=== PATIENT | male | born 1940 | race Caucasian/White ===

== ENCOUNTER → 2017-09-15 10:50 | Outpatient (CLI) | payer OTHER, SELFPAY ==
--- NOTE | 2017-09-15 10:53 | DI.RAD.S_ITS ---
PROCEDURE: XR KNEE RT 3V INDICATIONS: PAIN TECHNIQUE: 3 views of the knee were acquired. COMPARISON: None. FINDINGS: Bones: No fractures or dislocations. No suspicious bony lesions. Mild medial patellofemoral compartment narrowing. Superior patellar spur is present. Soft tissues: Mild/moderate joint effusion. No suspicious soft tissue calcifications. IMPRESSION: Mild degenerative changes with mild to moderate effusion. No visualized acute fracture or dislocation. However, if clinical concern and/or pain persist, short interval imaging followup in 7-10 days is recommended, as occult injury cannot be definitively excluded. Dictated by: Liliya Ng M.D. on 09/15/2017 at 14:45 Approved by: Liliya Ng M.D. on 09/15/2017 at 14:46
== END ==
PROVIDERS: Family Provider Family Medicine; PCP Family Medicine; Visit Provider Family Medicine
DX: M25.561 Pain in right knee (principal)
CPT/HCPCS: 73562

== ENCOUNTER → 2018-02-13 08:10 | Outpatient (CLI) | payer OTHER, SELFPAY ==
[2018-02-13 09:28] LABS: Basophils Percent Auto 0.6 % (0-2); Eosinophils Percent Auto 3.9 % (2-4); Hematocrit 38.1 % (41-53); Hemoglobin 12.3 g/dL (13.5-17.5); Lymphocytes Percent Auto 24.2 % (25-40); Mean Corpuscular HGB Conc 32.3 % (30-36); Mean Corpuscular Hemoglobin 21.9 PG (26-34); Monocytes Percent Auto 6.3 % (3-14); Neutrophils Absolute Auto 3800 /uL (3000-5900); Platelet Count 226 X10^3/uL (150-400); Red Cell Distribution Width 15.8 % (11.6-14.8); White Blood Cell Count 5.9 X10^3/uL (4.5-11.0)
[2018-02-13 09:35] LABS: Add Manual Diff / Slide Review SLIDE REVIEW
[2018-02-13 10:07] LABS: Microcytosis 1+
[2018-02-13 10:08] LABS: Hypochromasia 1+
[2018-02-13 10:12] LABS: Alanine Aminotransferase 50 IU/L (21-72); Albumin 4.5 g/dL (3.5-5.0); Albumin Globulin Ratio 1.7 (1.0-2.8); Alkaline Phosphatase 37 U/L (38-126); Aspartate Aminotransferase 29 IU/L (17-59); BUN Creatinine Ratio 16.7 (6-22); Bilirubin Total 0.7 mg/dL (0.2-1.3); Blood Urea Nitrogen 20 mg/dL (9-20); Calcium 9.4 mg/dL (8.4-10.2); Carbon Dioxide 27 mmol/L (22-32); Chloride 103 mmol/L (98-107); Cholesterol 127 mg/dL (140-199); Globulin 2.6 g/dL (1.7-4.1); Glucose 153 mg/dL (80-110); HDL Cholesterol 32 mg/dL (40-60); HEMOLYSIS < 15 (0-50); LDL Cholesterol Calculated 50 mg/dL (<100); Potassium 4.3 mmol/L (3.4-5.1); Sodium 144 mmol/L (137-145); Total Protein 7.1 g/dL (6.3-8.2); Triglycerides 224 mg/dL (35-150)
[2018-02-13 10:39] LABS: Thyroid Stimulating Hormone 3.57 uIU/mL (0.47-4.68)
== END ==
PROVIDERS: PCP Family Medicine; Visit Provider Family Medicine
DX: D56.3 Thalassemia minor (principal); I25.10 Atherosclerotic heart disease of native coronary artery without angina pectoris; Z68.30 Body mass index [BMI] 30.0-30.9, adult
CPT/HCPCS: 36415; 80053; 80061; 83036; 84443; 85025

== ENCOUNTER 2018-03-17 09:38 | Day surgery (SDC) | payer OTHER, SELFPAY ==
[2018-03-17 10:10] VITALS: BP 157/76; PULSE 68; RESP 16; TEMP 36.4; O2SAT 95; BMI 30.2
--- NOTE | 2018-03-17 10:43 | PM.HP.1 ---
History of Present Illness Date Patient Seen: 03/17/18 Time Patient Seen: 10:37 Chief complaint: [id number] COLONOSCOPY Narrative: The patient is a gentleman here for screening colonoscopy. His last exam was at least 8 years ago. It was done because of concern with diverticulitis. He has never had a polyps that he is aware of. No family history of colon cancer. Patient History Medical History Coronary artery disease (Chronic) Surgical History History of appendectomy (Resolved) History of cholecystectomy (Resolved) S/P left rotator cuff repair (Resolved) Family & Social History Social History: household members spouse Tobacco & Substance use: Smoking Status smoked in his younger years Meds Home Medications Medication Instructions Recorded Confirmed Type aspirin 81 mg PO QDAY #0 12/15/12 02/18/18 History colchicine 0.6 mg PO QDAY #30 cap 01/17/16 02/18/18 Rx lovastatin 20 mg PO QDAY #90 tab 03/04/17 02/18/18 Rx vardenafil 10 mg tablet 10 mg PO ONCE #10 tab 10/28/17 02/18/18 Rx metformin 1,000 mg tablet 1,000 mg PO BIDCC #180 tab 12/22/17 02/18/18 Rx gabapentin 100 mg capsule 100 mg PO BEDTIME #90 cap 02/18/18 Rx sildenafil (antihypertensive) 20 20 mg PO ONCE #100 tab 02/18/18 Rx mg tablet Allergies Allergy/AdvReac Type Severity Reaction Status Date / Time Penicillins AdvReac Mild GI Verified 03/17/18 10:16 Review of Systems Review of Systems All systems reviewed & are unremarkable except as noted in HPI and below Exam Vital Signs (past 8 hours): - 03/17/18 10:10 Temperature 97.6 F Pulse Rate 68 Respiratory Rate 16 Blood Pressure 157/76 H Pulse Oximetry 95 Oxygen Delivery Method Room Air Narrative Exam Narrative: Alert and oriented. May Have some minor memory issues. Lungs are clear to auscultation. No rales or rhonchi. Heart regular rate and rhythm without murmur or gallop. Abdomen is protuberant soft nontender without mass. Alert oriented x3. Assessment & Plan Plan: Assessment/Plan Narrative: Procedure colonoscopy. I have discussed the procedure and the rationale with the patient including risks of bleeding, perforation which would necessitate a major operation, failure to find remove all lesions and the potential to tattoo. They appeared to understand and wished to proceed.
--- NOTE | 2018-03-17 10:47 | PM.PREOP ---
Pre-operative Note Interval Note Pre-op Check: Yes History & Physical exam performed today by Physician Changes: No ASA Class (for procedural sedation): III
[2018-03-17] MEDS: MIDAZOLAM 5 MG/5 ML VIAL IV (11:09)
[2018-03-17] MEDS: fentaNYL 250 MCG/5 ML INJ IV (11:10)
--- NOTE | 2018-03-17 11:18 | PM.OP.ENDO ---
Operative Date/Time/Diagnoses Date of procedure: 03/17/18 Time of procedure: 11:18 Pre-op diagnosis: Screening examination. Last exam 8 years ago. Post-op diagnosis: same (Sigmoid diverticulosis.) Procedure & Clinicians Study performed: Colonoscopy Same procedure as scheduled: Yes Indications: Screening Surgeon: Rashad Florence Procedure Notes SCOAP/Timeout: Performed Procedure in detail: The patient was placed in the left lateral decubitus position and underwent IV sedation directed by the surgeon consisting of fentanyl and Versed. Digital exam was unremarkable. I could only feel the distal portion of his prostate but it was palpably normal. The scope was inserted and advanced through the rectum into the sigmoid, descending, transverse, and ascending colon. A few diverticula were seen in the sigmoid colon. To reach the cecum pressure was applied and a stiffener inserted.. The cecum was reached identified by the ileocecal valve and the appendiceal opening. The ileocecal valve was briefly cannulated. The terminal ileum was normal in appearance. The scope was gradually brought out. No Polyps were found . The scope ultimately was retroflexed in the rectum. The appearance was remarkable for some minor internal hemorrhoids. There were no ulcerations.. The scope was removed and the patient tolerated the procedure well Scope withdrawal time: 8 3/4 minutes Sedation minutes: 29 Findings: diverticulosis (A few sigmoid diverticuli noted) Specimen(s): none sent Complications: none Recommendations: Other recommendation (Screening colonoscopies are not usually recommended after age 80. If you are healthy you can consider having 1 at 85) Follow up: as needed Disposition: PACU
[2018-03-17 11:29] VITALS: BP 129/78; PULSE 60; RESP 16; TEMP 37.2; O2SAT 97
[2018-03-17 11:32] VITALS: BP 135/75; PULSE 68; RESP 16; O2SAT 96
[2018-03-17 11:50] VITALS: BP 139/75; PULSE 54; RESP 16; TEMP 36.6; O2SAT 95
== END 2018-03-17 11:56 | disposition home or self-care (01) ==
PROVIDERS: Family Provider Family Medicine; PCP Family Medicine; Visit Provider Specialist
PROC: 0DJD8ZZ Inspection of Lower Intestinal Tract, Via Natural or Artificial Opening Endoscopic (ICD-10-PCS; CPT 45378; principal; 2018-03-17 10:45)
DX: Z12.11 Encounter for screening for malignant neoplasm of colon (principal); K57.30 Diverticulosis of large intestine without perforation or abscess without bleeding; I25.10 Atherosclerotic heart disease of native coronary artery without angina pectoris; Z87.891 Personal history of nicotine dependence
CPT/HCPCS: G0121; 99152; 99153; J2250; J3010

== ENCOUNTER → 2018-04-23 10:50 | Outpatient (CLI) | payer OTHER, SELFPAY | PROVIDERS: PCP Family Medicine; Visit Provider Family Medicine | DX: M79.672 Pain in left foot (principal) | CPT/HCPCS: 95885; 95886; 95911 ==

== ENCOUNTER → 2018-06-04 09:16 | Outpatient (CLI) | payer MEDICARE, SELFPAY ==
[2018-06-04 11:35] LABS: BUN Creatinine Ratio 16.7 (6-22); Blood Urea Nitrogen 20 mg/dL (9-20); Calcium 9.3 mg/dL (8.4-10.2); Carbon Dioxide 27 mmol/L (22-32); Chloride 99 mmol/L (98-107); Glucose 194 mg/dL (80-110); HEMOLYSIS 40 (0-50); Potassium 4.6 mmol/L (3.4-5.1); Sodium 140 mmol/L (137-145)
[2018-06-04 11:42] LABS: Hemoglobin A1C% w Est Avg Glu 7.6 % (4.0-6.0)
== END ==
PROVIDERS: PCP Family Medicine; Visit Provider Family Medicine
DX: E11.9 Type 2 diabetes mellitus without complications (principal)
CPT/HCPCS: 36415; 80048; 83036

== ENCOUNTER 2019-02-04 12:21 | Emergency (ER) | payer MEDICARE, OTHER, SELFPAY ==
[2019-02-04 12:30] VITALS: BP 147/84; PULSE 84; RESP 22; TEMP 36.7; O2SAT 94
--- NOTE | 2019-02-04 12:44 | DI.RAD.S_ITS ---
PROCEDURE: XR CHEST 2V INDICATIONS: chest pain TECHNIQUE: 2 views of the chest were acquired. COMPARISON: [facility], , CHEST 2 VIEW, 12/15/2006, 11:39. FINDINGS: Surgical changes and devices: None. Lungs and pleura: There appears to be an area of increased attenuation within the retrocardiac region on the lateral view, which is new since the previous study. A calcified granuloma within the right lung is unchanged. No large effusion or pneumothorax is evident. Mediastinum: Mediastinal contours are normal. Heart size is normal. There is aortic atherosclerosis. Bones and chest wall: No suspicious bony abnormalities. Soft tissues appear unremarkable. IMPRESSION: Mild retrocardiac consolidation is suspicious for pneumonia versus atelectasis. Dictated by: Jonathan Johnson M.D. on 02/04/2019 at 12:31 Approved by: Jonathan Johnson M.D. on 02/04/2019 at 12:32
[2019-02-04 13:10] LABS: Add Manual Diff / Slide Review NO; Basophils Absolute Auto 100 /uL (0-100); Basophils Percent Auto 0.9 % (0-2); Eosinophils Absolute Auto 300 /uL (0-450); Eosinophils Percent Auto 4.3 % (2-4); Hematocrit 40.8 % (41-53); Hemoglobin 13.1 g/dL (13.5-17.5); Lymphocytes Absolute Auto 1400 /uL (1100-4500); Lymphocytes Percent Auto 20.3 % (25-40); Mean Corpuscular HGB Conc 32.2 % (30-36); Mean Corpuscular Hemoglobin 21.5 PG (26-34); Mean Corpuscular Volume 66.9 fL (80-100); Monocytes Absolute Auto 500 /uL (0-900); Monocytes Percent Auto 7.7 % (3-14); Neutrophils Absolute Auto 4600 /uL (1500-7000); Neutrophils Percent Auto 66.8 % (50-75); Platelet Count 270 X10^3/uL (150-400); White Blood Cell Count 6.9 X10^3/uL (4.5-11.0)
[2019-02-04 13:14] LABS: Prothrombin Time 11.5 SECONDS (10.1-12.7)
[2019-02-04 13:17] LABS: PTT Partial Thromboplastin Tim 30 SECONDS (26.4-36.2)
[2019-02-04 13:22] LABS: Alanine Aminotransferase 45 IU/L (21-72); Albumin 4.7 g/dL (3.5-5.0); Albumin Globulin Ratio 1.6 (1.0-2.8); Alkaline Phosphatase 39 U/L (38-126); Aspartate Aminotransferase 32 IU/L (17-59); Bilirubin Total 0.7 mg/dL (0.2-1.3); Blood Urea Nitrogen 26 mg/dL (9-20); Calcium 9.7 mg/dL (8.4-10.2); Carbon Dioxide 24 mmol/L (22-32); Chloride 101 mmol/L (98-107); Creatine Kinase 38 U/L (55-170); Estimated Glomerular Filt Rate 53.7 mL/min (>60); Globulin 2.9 g/dL (1.7-4.1); Glucose 160 mg/dL (80-110); HEMOLYSIS < 15 (0-50); Lipase 94 U/L (23-300); Potassium 4.4 mmol/L (3.4-5.1); Sodium 139 mmol/L (137-145); Total Protein 7.6 g/dL (6.3-8.2)
[2019-02-04 13:34] LABS: Troponin I < 0.012 ng/mL (0.01-0.034)
[2019-02-04 13:51] LABS: Anisocytosis 1+; Dohle Bodies 1+; Microcytosis 1+; Poikilocytosis 2+
--- NOTE | 2019-02-04 14:23 | ED_ITS ---
HPI - Chest Pain General Chief Complaint: Chest Pain Stated Complaint: Chest Pain x 2 months/increased today Time Seen by Provider: 02/04/19 14:00 Source: patient Mode of arrival: Ambulatory History of Present Illness HPI narrative: Patient is a 78-year-old male with history of coronary artery disease who presents with chest chest pain off and on for about a month and a half this morning it started on the left side of his chest pain point lasted for about 5 minutes lasted while he was walking. It went away on its own nonradiating he denies any shortness of breath no nausea no diaphoresis. This morning he says it was significantly worse. MD complaint: chest pain Onset (ago): month(s) Duration: improved Onset: during rest and during exertion Pain location: left chest Relieving factors: nothing Exacerbating factors: nothing Related Data Home Medications Medication Instructions Recorded Confirmed aspirin 81 mg PO DAILY #0 12/15/12 02/04/19 ResMed AirCurve 10 BIPAP #1 ea 07/27/18 02/04/19 colchicine 0.6 mg PO DAILY 02/04/19 latanoprost 1 drp OPHTHALMIC (EYE) DIRECTED 02/04/19 02/04/19 lovastatin 20 mg PO DAILY 02/04/19 02/04/19 Previous Rx's Medication Instructions Recorded sildenafil (antihypertensive) 20 20 mg PO ONCE #100 tab 02/18/18 mg tablet empagliflozin 25 mg tablet 25 mg PO QAM #90 tab 05/25/18 gabapentin 100 mg capsule 400 mg PO BEDTIME #360 cap 05/25/18 metformin 1,000 mg tablet 1,000 mg PO BIDCC #180 tab 05/25/18 Allergies Allergy/AdvReac Type Severity Reaction Status Date / Time Penicillins AdvReac Mild GI Verified 02/01/19 09:32 Review of Systems Review of Systems Narrative: GENERAL: Denies chills, fatigue, malaise, fever, sweats, travel HEENT: Denies sinus pain, ear pain, sore throat, difficulty swallowing, neck pain RESPIRATORY: Denies dyspnea, cough, wheezing, hemoptysis, sputum. CARDIOVASCULAR: See HPI GASTROINTESTINAL: Denies nausea, vomiting, abdominal pain, diarrhea, c onstipation, melena. : Denies dysuria, frequency, incontinence, hematuria, urinary retention, flank pain. MUSCULOSKELETAL: Denies weakness, joint pain, or bony pain SKIN: No rash, no erythema, no pruritus NEUROLOGIC: Denies weakness, dizziness, headache, numbness, change in speech, confusion PSYCHIATRIC: No concerning psychosocial issues. 12 point review of systems is negative except for those stated above and HPI [facility] Social History household members: spouse Smoking Status: Never smoker Exam Initial Vital Signs Initial Vital Signs: Vital Signs Temperature 98.0 F 02/04/19 12:30 Pulse Rate 84 02/04/19 12:30 Respiratory Rate 22 02/04/19 12:30 Blood Pressure 147/84 H 02/04/19 12:30 Pulse Oximetry 94 02/04/19 12:30 GENERAL: Well-appearing, well-nourished and in no acute distress. HEENT: Head atraumatic,EOMI, pupils reactive, face symmetric, moist mucous membrane CARDIOVASCULAR: Regular rate and rhythm without murmurs, rubs or gallops. RESPIRATORY: Breath sounds equal bilaterally, no wheezes rales or rhonchi. ABDOMEN: Soft, nontender. Normoactive bowel sounds all 4 quadrants. No guarding or rebound. : No CVA tenderness EXTREMITIES: Normal range of motion, no clubbing or edema. Neurovascularly intact NEUROLOGICAL: Alert and oriented x4.Normal gait and speech. SKIN: Warm, dry, no laceration, no petechiae, no rashes or lesions. Course Orders Ordered: Discontinued Medications Aspirin (Aspirin Chew) 324 mg PO NOW ONE Stop: 02/04/19 14:38 Last Admin: 02/04/19 15:23 Dose: 324 mg Documented by: STEPHENIE Consultations Consultation #1: Discussed case with PCP Dr. Dorado. Outpatient treadmill test has been scheduled for tomorrow. Time: 15:48 Vital Signs Vital signs: Vital Signs - 8 hr 02/04/19 12:30 02/04/19 15:00 02/04/19 16:00 Temperature 98.0 F Pulse Rate 84 63 63 Respiratory Rate 22 18 18 Blood Pressure 147/84 H Blood Pressure [Right Arm] 136/67 101/79 Pulse Oximetry 94 96 96 MDM - Chest Pain Lab Data Attestation: I reviewed the patient's lab results. Result diagrams: 02/04/19 12:55 02/04/19 12:55 Labs: Lab Results 10/07/2102/04/19 02/04/19 Range/Units 12:55 12:55 12:55 WBC 6.9 (4.5-11.0) X10^3/uL RBC 6.10 H (4.5-5.9) X10^6/uL Hgb 13.1 L (13.5-17.5) g/dL Hct 40.8 L (41-53) % MCV 66.9 L (80-100) fL MCH 21.5 L (26-34) PG MCHC 32.2 (30-36) % RDW 16.0 H (11.6-14.8) % Plt Count 270 (150-400) X10^3/uL Neut % (Auto) 66.8 (50-75) % Lymph % (Auto) 20.3 L (25-40) % Starke % (Auto) 7.7 (3-14) % Eos % (Auto) 4.3 H (2-4) % Baso % (Auto) 0.9 (0-2) % Neut # (Auto) 4600 (1232-5606) /uL Lymph # (Auto) 1400 (4482-7450) /uL Starke # (Auto) 500 (0-900) /uL Eos # (Auto) 300 (0-450) /uL Baso # (Auto) 100 (0-100) /uL Dohle Bodies 1+ H RBC Morphology See below Poikilocytosis 2+ H Anisocytosis 1+ H Microcytosis 1+ H PT 11.5 (10.1-12.7) SECONDS INR 1.0 (0.9-1.3) APTT 30 (26.4-36.2) SECONDS Sodium 139 (137-145) mmol/L Potassium 4.4 (3.4-5.1) mmol/L Chloride 101 (98-107) mmol/L Carbon Dioxide 24 (22-32) mmol/L BUN 26 H (9-20) mg/dL Creatinine 1.30 H (0.66-1.25) mg/dL Estimated GFR 53.7 L (>60) mL/min BUN/Creatinine Ratio 20.0 (6-22) Glucose 160 H (80-110) mg/dL Calcium 9.7 (8.4-10.2) mg/dL Total Bilirubin 0.7 (0.2-1.3) mg/dL AST 32 (17-59) IU/L ALT 45 (21-72) IU/L Alkaline Phosphatase 39 (38-126) U/L Total Creatine Kinase 38 L (55-170) U/L CK-MB (CK-2) TNP CK-MB (CK-2) Rel Index TNP Troponin I < 0.012 (0.01-0.034) ng/mL Total Protein 7.6 (6.3-8.2) g/dL Albumin 4.7 (3.5-5.0) g/dL Globulin 2.9 (1.7-4.1) g/dL Albumin/Globulin Ratio 1.6 (1.0-2.8) Lipase 94 (23-300) U/L 02/04/19 Range/Units 14:55 WBC (4.5-11.0) X10^3/uL RBC (4.5-5.9) X10^6/uL Hgb (13.5-17.5) g/dL Hct (41-53) % MCV (80-100) fL MCH (26-34) PG MCHC (30-36) % RDW (11.6-14.8) % Plt Count (150-400) X10^3/uL Neut % (Auto) (50-75) % Lymph % (Auto) (25-40) % Starke % (Auto) (3-14) % Eos % (Auto) (2-4) % Baso % (Auto) (0-2) % Neut # (Auto) (3194-2146) /uL Lymph # (Auto) (1995-7634) /uL Starke # (Auto) (0-900) /uL Eos # (Auto) (0-450) /uL Baso # (Auto) (0-100) /uL Dohle Bodies RBC Morphology Poikilocytosis Anisocytosis Microcytosis PT (10.1-12.7) SECONDS INR (0.9-1.3) APTT (26.4-36.2) SECONDS Sodium (137-145) mmol/L Potassium (3.4-5.1) mmol/L Chloride (98-107) mmol/L Carbon Dioxide (22-32) mmol/L BUN (9-20) mg/dL Creatinine (0.66-1.25) mg/dL Estimated GFR (>60) mL/min BUN/Creatinine Ratio (6-22) Glucose (80-110) mg/dL Calcium (8.4-10.2) mg/dL Total Bilirubin (0.2-1.3) mg/dL AST (17-59) IU/L ALT (21-72) IU/L Alkaline Phosphatase (38-126) U/L Total Creatine Kinase (55-170) U/L CK-MB (CK-2) CK-MB (CK-2) Rel Index Troponin I < 0.012 (0.01-0.034) ng/mL Total Protein (6.3-8.2) g/dL Albumin (3.5-5.0) g/dL Globulin (1.7-4.1) g/dL Albumin/Globulin Ratio (1.0-2.8) Lipase (23-300) U/L Imaging Data Chest x-ray: Radiologist's impression: PROCEDURE: XR CHEST 2V INDICATIONS: chest pain TECHNIQUE: 2 views of the chest were acquired. COMPARISON: [facility], , CHEST 2 VIEW, 12/15/2006, 11:39. FINDINGS: Surgical changes and devices: None. Lungs and pleura: There appears to be an area of increased attenuation within the retrocardiac region on the lateral view, which is new since the previous study. A calcified granuloma within the right lung is unchanged. No large effusion or pneumothorax is evident. Mediastinum: Mediastinal contours are normal. Heart size is normal. There is aortic atherosclerosis. Bones and chest wall: No suspicious bony abnormalities. Soft tissues appear unremarkable. IMPRESSION: Mild retrocardiac consolidation is suspicious for pneumonia versus atelectasis. Dictated by: Jonathan Johnson M.D. on 02/04/2019 at 12:31 Approved by: Jonathan Johnson M.D. on 02/04/2019 at 12:32 ECG Data Attestation: I personally reviewed and interpreted this ECG as follows: Prior ECG tracings: not available for review Interpretation: Normal sinus rhythm at 78, no ST elevations no T-wave inversions no priors to compare MDM Narrative Medical decision making narrative: Patient is chest pain-free. He has 2- troponins. He has an outpatient stress test scheduled for tomorrow. Instructed to return to the ED if his chest pain should worsen overnight. Discharge Plan Departure Patient Disposition: Home Clinical Impression: Chest pain Qualifiers: Chest pain type: unspecified Qualified Code(s): R07.9 - Chest pain, unspecified Discharge Date/Time: 02/04/19 16:47 Instructions: DI for Chest Pain Activity Restrictions/Additional Instructions: *You have been diagnosed with chest pain *What to do: A stress test has been scheduled for you for tomorrow. *Continue to take medications as directed *Follow up with your primary care provider in 2-3 days *Return to ER if you should have increasing chest pain shortness or any new, worsening or concerning symptoms Prescriptions: No Action aspirin 81 MG tablet,delayed release (DR/EC) 81 mg PO DAILY Qty: 0 RF: 0 sildenafil (antihypertensive) 20 mg tablet 20 mg PO ONCE Qty: 100 RF: 5 gabapentin 100 mg capsule 400 mg PO BEDTIME Qty: 360 RF: 3 metformin [Glucophage] 1,000 mg tablet 1,000 mg PO BIDCC Qty: 180 RF: 3 empagliflozin [Jardiance] 25 mg tablet 25 mg PO QAM Qty: 90 RF: 3 latanoprost 0.005 % drops 1 drp ophthalmic (eye) DIRECTED RF: 0 lovastatin 20 mg tablet 20 mg PO DAILY RF: 0 colchicine 0.6 mg capsule 0.6 mg PO DAILY RF: 0 (DME) ResMed AirCurve 10 BIPAP Qty: 1 RF: 0 Referrals: Speedy Dorado MD [Primary Care Provider] -
[2019-02-04 15:00] VITALS: BP 136/67; PULSE 63; RESP 18; O2SAT 96
[2019-02-04 15:22] LABS: Troponin I < 0.012 ng/mL (0.01-0.034)
[2019-02-04] MEDS: ASPIRIN 81 MG CHEW TAB 324 MG PO (15:23)
[2019-02-04 16:00] VITALS: BP 101/79; PULSE 63; RESP 18; O2SAT 96
[2019-02-04 16:30] VITALS: BP 134/64; PULSE 66; RESP 12; O2SAT 95
== END 2019-02-04 16:47 | disposition home or self-care (01) ==
PROVIDERS: Emergency Provider Emergency Medicine; PCP Family Medicine
DX: R07.9 Chest pain, unspecified (principal); Z79.82 Long term (current) use of aspirin
CPT/HCPCS: 36415; 71046; 80053; 82550; 83690; 84484; 85025; 85610; 85730; 93005; 93016; 93017; 93018; 99283; 99285

== ENCOUNTER → 2019-02-05 11:16 | Outpatient (CLI) | payer MEDICARE, OTHER, SELFPAY ==
--- NOTE | 2019-02-05 11:51 | PM.TREADMILL ---
Cardiac Stress Test Report Referral & Results Date Patient Seen: 02/05/19 Requesting provider: Speedy Dorado Indication: Chest pain, ER visit yesterday Rest ECG: Unremarkable Procedure Note: Today following both written and verbal informed consent, the patient was exercised according to a standard Shahram protocol. The patient exercised for a total of 6 minutes 36 seconds achieving a maximum heart rate of 140. Patient's maximum systolic blood pressure was 212. This was an estimated 7.0 MET's. There are no ST-T segment changes Normal heart rate and blood pressure response to exercise although perhaps a bit hypertensive Functional aerobic impairment rates-10% on the active scale or 10% better than average Impression: No ECG evidence of ischemia Better than average exercise capacity Clinical correlation suggested Please note: Actual ECG tracings can be found in the PACS system.
== END ==
PROVIDERS: PCP Family Medicine; Visit Provider Family Medicine
DX: R07.9 Chest pain, unspecified (principal)
CPT/HCPCS: 93016; 93017; 93018

== ENCOUNTER → 2019-03-12 10:49 | Outpatient (CLI) | payer MEDICARE, OTHER, SELFPAY ==
[2019-03-12 12:46] LABS: Add Manual Diff / Slide Review NO; Basophils Absolute Auto 0 /uL (0-100); Basophils Percent Auto 0.7 % (0-2); Eosinophils Absolute Auto 200 /uL (0-450); Eosinophils Percent Auto 2.6 % (2-4); Hematocrit 42.5 % (41-53); Hemoglobin 13.6 g/dL (13.5-17.5); Lymphocytes Absolute Auto 1700 /uL (1100-4500); Lymphocytes Percent Auto 24.4 % (25-40); Mean Corpuscular Hemoglobin 21.9 PG (26-34); Mean Corpuscular Volume 68.4 fL (80-100); Monocytes Absolute Auto 400 /uL (0-900); Monocytes Percent Auto 6.4 % (3-14); Neutrophils Absolute Auto 4600 /uL (1500-7000); Neutrophils Percent Auto 65.9 % (50-75); Platelet Count 253 X10^3/uL (150-400); Red Blood Cell Count 6.21 X10^6/uL (4.5-5.9); Red Cell Distribution Width 16.5 % (11.6-14.8); White Blood Cell Count 6.9 X10^3/uL (4.5-11.0)
[2019-03-12 13:32] LABS: Anisocytosis 1+; Microcytosis 1+; Ovalocytes 1+; Poikilocytosis 1+
[2019-03-12 14:03] LABS: Blood Urea Nitrogen 24 mg/dL (9-20); Calcium 9.4 mg/dL (8.4-10.2); Carbon Dioxide 23 mmol/L (22-32); Chloride 104 mmol/L (98-107); Cholesterol 136 mg/dL (140-199); Estimated Glomerular Filt Rate 58.9 mL/min (>60); Glucose 127 mg/dL (80-110); HDL Cholesterol 30 mg/dL (40-60); HEMOLYSIS < 15 (0-50); LDL Cholesterol Calculated 48 mg/dL (<100); Sodium 141 mmol/L (137-145); Triglycerides 290 mg/dL (35-150)
[2019-03-12 14:33] LABS: Thyroid Stimulating Hormone 3.55 uIU/mL (0.47-4.68)
== END ==
PROVIDERS: PCP Family Medicine; Visit Provider Family Medicine
DX: E11.9 Type 2 diabetes mellitus without complications (principal); I25.10 Atherosclerotic heart disease of native coronary artery without angina pectoris
CPT/HCPCS: 36415; 80048; 80061; 83036; 84443; 85025

== ENCOUNTER → 2019-07-12 11:17 | Outpatient (CLI) | payer MEDICARE, OTHER, SELFPAY ==
[2019-07-12 12:01] LABS: Hemoglobin A1C% w Est Avg Glu 8.2 % (4.0-6.0)
[2019-07-12 12:44] LABS: BUN Creatinine Ratio 16.2 (6-22); Blood Urea Nitrogen 21 mg/dL (9-20); Calcium 9.7 mg/dL (8.4-10.2); Carbon Dioxide 23 mmol/L (22-32); Chloride 104 mmol/L (98-107); Estimated Glomerular Filt Rate 53.7 mL/min (>60); Glucose 212 mg/dL (80-110); HEMOLYSIS < 15 (0-50); Potassium 4.7 mmol/L (3.4-5.1); Sodium 140 mmol/L (137-145)
== END ==
PROVIDERS: PCP Family Medicine; Referring Provider Family Medicine; Visit Provider Family Medicine
DX: E11.9 Type 2 diabetes mellitus without complications (principal)
CPT/HCPCS: 36415; 80048; 83036

== ENCOUNTER → 2019-08-30 07:27 | Outpatient (CLI) | payer MEDICARE, OTHER, SELFPAY ==
[2019-08-30 07:56] LABS: Hemoglobin A1C% w Est Avg Glu 8.3 % (4.0-6.0)
== END ==
PROVIDERS: PCP Family Medicine; Referring Provider Family Medicine; Visit Provider Family Medicine
DX: Z51.89 Encounter for other specified aftercare (principal); E11.9 Type 2 diabetes mellitus without complications
CPT/HCPCS: 36415; 83036

== ENCOUNTER → 2020-03-20 06:56 | Outpatient (CLI) | payer MEDICARE, OTHER, SELFPAY ==
[2020-03-20 08:54] LABS: Add Manual Diff / Slide Review NO; Basophils Absolute Auto 0 /uL (0-100); Basophils Percent Auto 0.6 % (0-2); Eosinophils Absolute Auto 200 /uL (0-450); Eosinophils Percent Auto 3.4 % (2-4); Hematocrit 41.9 % (41-53); Hemoglobin 13.6 g/dL (13.5-17.5); Lymphocytes Absolute Auto 1500 /uL (1100-4500); Mean Corpuscular HGB Conc 32.4 % (30-36); Mean Corpuscular Hemoglobin 22.4 PG (26-34); Mean Corpuscular Volume 69.2 fL (80-100); Monocytes Absolute Auto 400 /uL (0-900); Monocytes Percent Auto 7.3 % (3-14); Neutrophils Absolute Auto 3500 /uL (1500-7000); Neutrophils Percent Auto 61.7 % (50-75); Platelet Count 249 X10^3/uL (150-400); Red Blood Cell Count 6.05 X10^6/uL (4.5-5.9); White Blood Cell Count 5.7 X10^3/uL (4.5-11.0)
[2020-03-20 08:57] LABS: Hemoglobin A1C% w Est Avg Glu 7.4 % (4.0-6.0)
[2020-03-20 09:11] LABS: Anisocytosis 1+; Poikilocytosis 1+
[2020-03-20 09:15] LABS: Alanine Aminotransferase 47 IU/L (<50); Albumin 4.5 g/dL (3.5-5.0); Albumin Globulin Ratio 1.6 (1.0-2.8); Alkaline Phosphatase 42 U/L (38-126); Aspartate Aminotransferase 32 IU/L (17-59); Bilirubin Total 0.7 mg/dL (0.2-1.3); Blood Urea Nitrogen 21 mg/dL (9-20); Calcium 9.7 mg/dL (8.4-10.2); Carbon Dioxide 28 mmol/L (22-32); Chloride 105 mmol/L (98-107); Cholesterol 121 mg/dL (140-199); Estimated Glomerular Filt Rate 53.1 mL/min (>60); Globulin 2.8 g/dL (1.7-4.1); Glucose 152 mg/dL (80-110); HDL Cholesterol 27 mg/dL (40-60); HEMOLYSIS < 15 (0-50); LDL Cholesterol Calculated 38 mg/dL (<100); Sodium 140 mmol/L (137-145); Total Protein 7.3 g/dL (6.3-8.2); Triglycerides 279 mg/dL (35-150)
[2020-03-20 09:43] LABS: Prostate Specific Antigen Scrn 1.88 ng/mL (0.1-4.0)
== END ==
PROVIDERS: PCP Family Medicine; Referring Provider Family Medicine; Visit Provider Family Medicine
DX: E11.9 Type 2 diabetes mellitus without complications (principal); Z12.5 Encounter for screening for malignant neoplasm of prostate
CPT/HCPCS: 36415; 80053; 80061; 83036; 85025; G0103

== ENCOUNTER → 2020-06-28 08:43 | Outpatient (CLI) | payer MEDICARE, OTHER, SELFPAY ==
[2020-06-28 09:53] LABS: Hemoglobin A1C% w Est Avg Glu 7.1 % (4.0-6.0)
== END ==
PROVIDERS: PCP Family Medicine; Referring Provider Family Medicine; Visit Provider Family Medicine
DX: E11.9 Type 2 diabetes mellitus without complications (principal)
CPT/HCPCS: 36415; 83036

== ENCOUNTER → 2020-08-02 09:42 | Outpatient (CLI) | payer MEDICARE, OTHER, SELFPAY | PROVIDERS: PCP Family Medicine; Referring Provider Family Medicine; Visit Provider Family Medicine | DX: K52.9 Noninfective gastroenteritis and colitis, unspecified (principal) | CPT/HCPCS: 87045; 87046; 87177; 87899 ==

== ENCOUNTER → 2020-09-06 07:14 | Outpatient (CLI) | payer MEDICARE, OTHER, SELFPAY ==
[2020-09-06 08:38] LABS: Hemoglobin A1C% w Est Avg Glu 5.8 % (4.0-6.0)
== END ==
PROVIDERS: PCP Family Medicine; Referring Provider Family Medicine; Visit Provider Family Medicine
DX: E11.42 Type 2 diabetes mellitus with diabetic polyneuropathy (principal)
CPT/HCPCS: 36415; 83036

== ENCOUNTER → 2020-12-22 07:39 | Outpatient (CLI) | payer MEDICARE, OTHER, SELFPAY ==
[2020-12-22 08:57] LABS: Hemoglobin A1C% w Est Avg Glu 6.3 % (4.0-6.0)
== END ==
PROVIDERS: PCP Family Medicine; Referring Provider Family Medicine; Visit Provider Family Medicine
DX: E11.42 Type 2 diabetes mellitus with diabetic polyneuropathy (principal); K52.9 Noninfective gastroenteritis and colitis, unspecified
CPT/HCPCS: 36415; 83036

== ENCOUNTER → 2021-03-07 08:01 | Outpatient (CLI) | payer MEDICARE, OTHER, SELFPAY ==
[2021-03-07 08:27] LABS: Add Manual Diff / Slide Review NO; Basophils Absolute Auto 0 /uL (0-100); Basophils Percent Auto 0.5 % (0-2); Eosinophils Absolute Auto 200 /uL (0-450); Hematocrit 42.9 % (41-53); Hemoglobin 13.9 g/dL (13.5-17.5); Lymphocytes Absolute Auto 1800 /uL (1100-4500); Lymphocytes Percent Auto 29.9 % (25-40); Mean Corpuscular HGB Conc 32.4 % (30-36); Mean Corpuscular Hemoglobin 22.2 PG (26-34); Mean Corpuscular Volume 68.6 fL (80-100); Monocytes Absolute Auto 400 /uL (0-900); Monocytes Percent Auto 6.4 % (3-14); Neutrophils Absolute Auto 3600 /uL (1500-7000); Neutrophils Percent Auto 59.2 % (50-75); Platelet Count 208 X10^3/uL (150-400); Red Blood Cell Count 6.24 X10^6/uL (4.5-5.9); Red Cell Distribution Width 16.1 % (11.6-14.8)
[2021-03-07 08:46] LABS: Alanine Aminotransferase 32 IU/L (<50); Albumin 4.6 g/dL (3.5-5.0); Albumin Globulin Ratio 1.8 (1.0-2.8); Alkaline Phosphatase 38 U/L (38-126); Aspartate Aminotransferase 27 IU/L (17-59); BUN Creatinine Ratio 15.8 (6-22); Bilirubin Total 0.5 mg/dL (0.2-1.3); Blood Urea Nitrogen 21 mg/dL (9-20); Calcium 9.6 mg/dL (8.4-10.2); Carbon Dioxide 26 mmol/L (22-32); Chloride 105 mmol/L (98-107); Cholesterol 105 mg/dL (140-199); Globulin 2.6 g/dL (1.7-4.1); Glucose 141 mg/dL (80-110); HDL Cholesterol 30 mg/dL (40-60); HEMOLYSIS < 15 (0-50); LDL Cholesterol Calculated 36 mg/dL (<100); Potassium 4.2 mmol/L (3.4-5.1); Sodium 141 mmol/L (137-145); Total Protein 7.2 g/dL (6.3-8.2); Triglycerides 196 mg/dL (35-150)
[2021-03-07 09:01] LABS: Microcytosis 2+
[2021-03-07 09:07] LABS: Vitamin D 25 Hydroxy (D3) 84.4 ng/mL (30.0-100.0)
== END ==
PROVIDERS: PCP Family Medicine; Referring Provider Family Medicine; Visit Provider Family Medicine
DX: E11.42 Type 2 diabetes mellitus with diabetic polyneuropathy (principal); I25.10 Atherosclerotic heart disease of native coronary artery without angina pectoris; E55.9 Vitamin D deficiency, unspecified
CPT/HCPCS: 36415; 80053; 80061; 82306; 85025

== ENCOUNTER → 2021-07-04 08:06 | Outpatient (CLI) | payer MEDICARE, OTHER, SELFPAY ==
[2021-07-04 09:12] LABS: Hemoglobin A1C% w Est Avg Glu 6.5 % (4.0-6.0)
[2021-07-04 09:30] LABS: Alanine Aminotransferase 34 IU/L (<50); Albumin 4.6 g/dL (3.5-5.0); Albumin Globulin Ratio 1.6 (1.0-2.8); Alkaline Phosphatase 39 U/L (38-126); Aspartate Aminotransferase 32 IU/L (17-59); BUN Creatinine Ratio 21.2 (6-22); Bilirubin Total 0.5 mg/dL (0.2-1.3); Blood Urea Nitrogen 29 mg/dL (9-20); Calcium 9.4 mg/dL (8.4-10.2); Carbon Dioxide 28 mmol/L (22-32); Chloride 103 mmol/L (98-107); Cholesterol 132 mg/dL (140-199); Estimated Glomerular Filt Rate 50.3 mL/min (>60); Globulin 2.8 g/dL (1.7-4.1); Glucose 139 mg/dL (80-110); HDL Cholesterol 28 mg/dL (40-60); HEMOLYSIS 31 (0-50); LDL Cholesterol Calculated 45 mg/dL (<100); Sodium 140 mmol/L (137-145); Total Protein 7.4 g/dL (6.3-8.2); Triglycerides 295 mg/dL (35-150)
== END ==
PROVIDERS: PCP Family Medicine; Referring Provider Family Medicine; Visit Provider Family Medicine
DX: E11.42 Type 2 diabetes mellitus with diabetic polyneuropathy (principal)
CPT/HCPCS: 36415; 80053; 80061; 83036

== ENCOUNTER → 2021-09-28 12:58 | Outpatient (CLI) | payer MEDICARE, OTHER, SELFPAY ==
[2021-09-28 14:17] LABS: Add Manual Diff / Slide Review NO; Basophils Absolute Auto 100 /uL (0-100); Basophils Percent Auto 0.9 % (0-2); Eosinophils Absolute Auto 200 /uL (0-450); Eosinophils Percent Auto 3.1 % (2-4); Hematocrit 41.7 % (41-53); Hemoglobin 13.4 g/dL (13.5-17.5); Lymphocytes Absolute Auto 1900 /uL (1100-4500); Mean Corpuscular HGB Conc 32.2 % (30-36); Mean Corpuscular Hemoglobin 22.1 PG (26-34); Mean Corpuscular Volume 68.5 fL (80-100); Monocytes Absolute Auto 400 /uL (0-900); Monocytes Percent Auto 7.2 % (3-14); Neutrophils Absolute Auto 3400 /uL (1500-7000); Neutrophils Percent Auto 56.8 % (50-75); Platelet Count 223 X10^3/uL (150-400); Red Blood Cell Count 6.08 X10^6/uL (4.5-5.9); Red Cell Distribution Width 16.8 % (11.6-14.8)
[2021-09-28 14:31] LABS: Alanine Aminotransferase 32 IU/L (<50); Albumin 4.6 g/dL (3.5-5.0); Albumin Globulin Ratio 1.8 (1.0-2.8); Alkaline Phosphatase 33 U/L (38-126); Aspartate Aminotransferase 28 IU/L (17-59); BUN Creatinine Ratio 19.5 (6-22); Bilirubin Total 0.7 mg/dL (0.2-1.3); Blood Urea Nitrogen 25 mg/dL (9-20); Calcium 9.3 mg/dL (8.4-10.2); Carbon Dioxide 22 mmol/L (22-32); Chloride 105 mmol/L (98-107); Estimated Glomerular Filt Rate 57 mL/min (>60); Globulin 2.6 g/dL (1.7-4.1); Glucose 100 mg/dL (80-110); HEMOLYSIS < 15 (0-50); Potassium 4.6 mmol/L (3.4-5.1); Sodium 142 mmol/L (137-145); Total Protein 7.2 g/dL (6.3-8.2)
[2021-09-28 14:59] LABS: Microcytosis 2+
[2021-09-28 15:02] LABS: Appearance Urine UA CLEAR; Bilirubin Urine UA NEGATIVE (NEGATIVE); Color Urine UA YELLOW; Glucose Urine UA 2+ g/dL (Negative); Ketones Urine UA NEGATIVE (NEGATIVE); Leukocyte Esterase Urine UA NEGATIVE (NEGATIVE); Nitrite Urine UA NEGATIVE (Negative); Occult Blood Urine UA NEGATIVE (Negative); Protein Urine UA NEGATIVE (Negative); Urobilinogen Urine UA 0.2 E.U./dL (0.2)
[2021-09-28 15:27] LABS: Bacteria Urine None Seen; Culture Indicated Urine Cult Not Indicated; RBC Urine None Seen (0-5/HPF); Squamous Epithelial Cell Urine 0-1 /HPF (0-5/HPF); WBC Urine 0-1/HPF (0-5/HPF)
[2021-09-28 18:39] LABS: Microalbumin Urine Random 1.4 mg/dL (0-1.6)
[2021-09-28 18:42] LABS: Microalbumi Creatinin Ratio Ur 17.5 ug/mg CR (<30)
[2021-09-28 18:47] LABS: Protein (Total) Urine Random < 5 mg/dL (0-12); Protein Creatinine Ratio Urine 0.06 GRAM/24H
== END ==
PROVIDERS: PCP Family Medicine; Referring Provider Internal Medicine Nephrology; Visit Provider Internal Medicine Nephrology
DX: N18.30 Chronic kidney disease, stage 3 unspecified (principal)
CPT/HCPCS: 36415; 80053; 81001; 82043; 82570; 84156; 85025

== ENCOUNTER → 2022-04-08 15:31 | Outpatient (CLI) | payer MEDICARE, OTHER, SELFPAY ==
[2022-04-08 18:53] LABS: Creatinine Urine Random 56.6 mg/dL
[2022-04-08 18:54] LABS: BUN Creatinine Ratio 22.8 (6-22); Blood Urea Nitrogen 29 mg/dL (9-20); Calcium 9.1 mg/dL (8.4-10.2); Carbon Dioxide 27 mmol/L (22-32); Chloride 99 mmol/L (98-107); Estimated Glomerular Filt Rate 57 mL/min (>60); Glucose 184 mg/dL (80-110); HEMOLYSIS 27 (0-50); Potassium 4.5 mmol/L (3.4-5.1); Sodium 138 mmol/L (137-145)
[2022-04-08 19:00] LABS: Microalbumi Creatinin Ratio Ur 28.2 ug/mg CR (<30); Microalbumin Urine Random 1.6 mg/dL (0-1.6)
== END ==
PROVIDERS: PCP Family Medicine; Referring Provider Internal Medicine Nephrology; Visit Provider Internal Medicine Nephrology
DX: E11.22 Type 2 diabetes mellitus with diabetic chronic kidney disease (principal); N18.31 Chronic kidney disease, stage 3a; I10 Essential (primary) hypertension
CPT/HCPCS: 36415; 80048; 82043; 82570; 85014; 85018

== ENCOUNTER → 2022-06-25 06:54 | Outpatient (CLI) | payer MEDICARE, OTHER, SELFPAY ==
[2022-06-25 07:30] LABS: Add Manual Diff / Slide Review NO; Basophils Absolute Auto 0 /uL (0-100); Basophils Percent Auto 0.8 % (0-2); Eosinophils Absolute Auto 200 /uL (0-450); Eosinophils Percent Auto 4.3 % (2-4); Hematocrit 43.2 % (41-53); Hemoglobin 13.9 g/dL (13.5-17.5); Lymphocytes Absolute Auto 1700 /uL (1100-4500); Lymphocytes Percent Auto 30.8 % (25-40); Mean Corpuscular HGB Conc 32.1 % (30-36); Mean Corpuscular Volume 68.5 fL (80-100); Monocytes Absolute Auto 400 /uL (0-900); Monocytes Percent Auto 6.8 % (3-14); Neutrophils Absolute Auto 3200 /uL (1500-7000); Neutrophils Percent Auto 57.3 % (50-75); Platelet Count 213 X10^3/uL (150-400); Red Blood Cell Count 6.31 X10^6/uL (4.5-5.9); Red Cell Distribution Width 16.1 % (11.6-14.8); White Blood Cell Count 5.5 X10^3/uL (4.5-11.0)
[2022-06-25 07:34] LABS: Hemoglobin A1C% w Est Avg Glu 8.2 % (4.0-6.0)
[2022-06-25 07:43] LABS: Alanine Aminotransferase 35 IU/L (<50); Albumin 4.4 g/dL (3.5-5.0); Albumin Globulin Ratio 1.6 (1.0-2.8); Alkaline Phosphatase 48 U/L (38-126); Aspartate Aminotransferase 24 IU/L (17-59); BUN Creatinine Ratio 15.8 (6-22); Bilirubin Total 0.6 mg/dL (0.2-1.3); Blood Urea Nitrogen 21 mg/dL (9-20); Calcium 9.3 mg/dL (8.4-10.2); Carbon Dioxide 26 mmol/L (22-32); Chloride 102 mmol/L (98-107); Cholesterol 135 mg/dL (140-199); Estimated Glomerular Filt Rate 54 mL/min (>60); Globulin 2.7 g/dL (1.7-4.1); Glucose 211 mg/dL (80-110); HDL Cholesterol 28 mg/dL (40-60); HEMOLYSIS < 15 (0-50); LDL Cholesterol Calculated 49 mg/dL (<100); Potassium 4.5 mmol/L (3.4-5.1); Sodium 138 mmol/L (137-145); Total Protein 7.1 g/dL (6.3-8.2); Triglycerides 290 mg/dL (35-150)
[2022-06-25 07:58] LABS: Microcytosis 2+
== END ==
PROVIDERS: PCP Family Medicine; Referring Provider Family Medicine; Visit Provider Family Medicine
DX: E11.42 Type 2 diabetes mellitus with diabetic polyneuropathy (principal); E78.1 Pure hyperglyceridemia; N18.31 Chronic kidney disease, stage 3a
CPT/HCPCS: 36415; 80053; 80061; 83036; 85025

== ENCOUNTER → 2022-12-06 15:16 | Outpatient (CLI) | payer MEDICARE, OTHER, SELFPAY | PROVIDERS: PCP Family Medicine; Referring Provider Family Medicine; Visit Provider Family Medicine | DX: Z01.810 Encounter for preprocedural cardiovascular examination (principal) | CPT/HCPCS: 93005 ==

== ENCOUNTER → 2022-12-25 07:11 | Outpatient (CLI) | payer MEDICARE, OTHER, SELFPAY ==
[2022-12-25 07:56] LABS: Add Manual Diff / Slide Review NO; Basophils Absolute Auto 100 /uL (0-100); Basophils Percent Auto 1.1 % (0-2); Eosinophils Absolute Auto 300 /uL (0-450); Hematocrit 41.6 % (41-53); Hemoglobin 13.5 g/dL (13.5-17.5); Lymphocytes Absolute Auto 1600 /uL (1100-4500); Lymphocytes Percent Auto 23.7 % (25-40); Mean Corpuscular HGB Conc 32.4 % (30-36); Mean Corpuscular Hemoglobin 22.1 PG (26-34); Mean Corpuscular Volume 68.1 fL (80-100); Monocytes Absolute Auto 400 /uL (0-900); Monocytes Percent Auto 6.1 % (3-14); Neutrophils Absolute Auto 4400 /uL (1500-7000); Neutrophils Percent Auto 65.1 % (50-75); Platelet Count 231 X10^3/uL (150-400); Red Blood Cell Count 6.12 X10^6/uL (4.5-5.9); Red Cell Distribution Width 16.7 % (11.6-14.8); White Blood Cell Count 6.7 X10^3/uL (4.5-11.0)
[2022-12-25 08:25] LABS: Alanine Aminotransferase 40 IU/L (<50); Albumin 4.5 g/dL (3.5-5.0); Albumin Globulin Ratio 1.8 (1.0-2.8); Alkaline Phosphatase 41 U/L (38-126); Aspartate Aminotransferase 24 IU/L (17-59); BUN Creatinine Ratio 16.5 (6-22); Bilirubin Total 0.6 mg/dL (0.2-1.3); Blood Urea Nitrogen 22 mg/dL (9-20); Calcium 9.8 mg/dL (8.4-10.2); Carbon Dioxide 28 mmol/L (22-32); Chloride 101 mmol/L (98-107); Estimated Glomerular Filt Rate 54 mL/min (>60); Globulin 2.5 g/dL (1.7-4.1); Glucose 171 mg/dL (80-110); HEMOLYSIS < 15 (0-50); Potassium 4.4 mmol/L (3.4-5.1); Sodium 137 mmol/L (137-145)
[2022-12-25 09:11] LABS: Anisocytosis 1+
[2022-12-25 09:12] LABS: Microcytosis 1+
[2022-12-25 11:09] LABS: Appearance Urine UA CLEAR; Bilirubin Urine UA NEGATIVE (NEGATIVE); Color Urine UA YELLOW; Glucose Urine UA 3+ g/dL (Negative); Ketones Urine UA NEGATIVE (NEGATIVE); Leukocyte Esterase Urine UA NEGATIVE (NEGATIVE); Nitrite Urine UA NEGATIVE (Negative); Occult Blood Urine UA NEGATIVE (Negative); Protein Urine UA NEGATIVE (Negative); Specific Gravity Urine UA 1.015 (1.000-1.035); Urobilinogen Urine UA 0.2 E.U./dL (0.2)
[2022-12-25 11:41] LABS: Bacteria Urine None Seen; Culture Indicated Urine Cult Not Indicated; RBC Urine None Seen (0-5/HPF); Squamous Epithelial Cell Urine None Seen (0-5/HPF); WBC Urine None Seen (0-5/HPF)
== END ==
PROVIDERS: PCP Family Medicine; Referring Provider Family Medicine; Visit Provider Family Medicine
DX: Z01.818 Encounter for other preprocedural examination (principal); R31.9 Hematuria, unspecified
CPT/HCPCS: 36415; 80053; 81001; 85025

== ENCOUNTER → 2023-01-03 15:35 | Outpatient (CLI) | payer MEDICARE, OTHER, SELFPAY ==
--- NOTE | 2023-01-03 15:37 | DI.RAD.S_ITS ---
PROCEDURE: XR CHEST 2V INDICATIONS: Cough TECHNIQUE: 2 views of the chest were acquired. COMPARISON: [facility], CR, XR CHEST 2V, 02/04/2019, 13:08. FINDINGS: Surgical changes and devices: None. Lungs and pleura: Probable calcified granuloma is redemonstrated within the right lung. No acute airspace opacities or pleural effusions. No pneumothorax. Mediastinum: Mediastinal contours are normal. Heart size is normal. Bones and chest wall: No suspicious bony abnormalities. Soft tissues appear unremarkable. IMPRESSION: No acute cardiopulmonary findings. Dictated by: Tere Ordoñez M.D. on 01/03/2023 at 17:01 Approved by: Tere Ordoñez M.D. on 01/03/2023 at 17:01
== END ==
PROVIDERS: PCP Family Medicine; Visit Provider Physician Assistant
DX: R05.9 Cough, unspecified (principal)
CPT/HCPCS: 71046

== ENCOUNTER 2023-01-18 08:58 | Emergency (ER) | payer MEDICARE, OTHER, SELFPAY ==
[2023-01-18] VITALS (8 sets, daily range): BP systolic 139–163; BP diastolic 65–70; PULSE 65–75; RESP 18; TEMP 36.7; O2SAT 93–97; BMI 27.8
--- NOTE | 2023-01-18 09:12 | DI.RAD.S_ITS ---
PROCEDURE: XR CHEST 2V INDICATIONS: cough TECHNIQUE: 2 views of the chest were acquired. COMPARISON: [facility], CR, XR CHEST 2V, 02/04/2019, 13:08. [facility], CR, XR CHEST 2V, 01/03/2023, 15:39. FINDINGS: Surgical changes and devices: None. Lungs and pleura: No infiltrate or consolidation. There is a calcified granuloma in the right lower lobe. No pleural effusions or pneumothorax. Mediastinum: Mediastinal contours are normal. Heart size is normal. Bones and chest wall: No suspicious bony abnormalities. Soft tissues appear unremarkable. IMPRESSION: No acute cardiopulmonary abnormality is seen. A calcified granuloma in the right lower lobe. Dictated by: Sarika Infante M.D. on 01/18/2023 at 9:46 Approved by: Sarika Infante M.D. on 01/18/2023 at 9:47
[2023-01-18] MEDS: ALBUTEROL 2.5 MG/3 ML NEB (ADULT) INH (09:30)
--- NOTE | 2023-01-18 09:51 | ED.GENADULT ---
HPI - General Adult General Chief complaint: Upper Respiratory Symptoms Stated complaint: Chest Congestion Time Seen by Provider: 01/18/23 09:07 Source: patient Mode of arrival: Ambulatory History of Present Illness HPI narrative: 82-year-old male without underlying lung pathology who is here for evaluation of 4-5 weeks of chest congestion, productive cough. No chest pain. He has been seen in the walk-in clinic. Had a chest x-ray. He was told that it was ?viral? he states things have not improved. No lower extremity swelling. No recent travel. Related Data Home Medications Medication Instructions Recorded Confirmed aspirin 81 mg tablet,delayed 81 mg PO DAILY ##0 12/15/12 01/03/23 release latanoprost 0.005 % eye drops 1 drp ophthalmic (eye) DIRECTED 02/04/19 01/03/23 Carditone 2 cap PO DAILY 03/17/19 01/03/23 berberine-herbal comb no.18 capsule 2 cap PO DAILY 03/17/19 01/03/23 Dreamstation BIPAP #1 ea 06/02/19 01/03/23 Xarelto 20 tab 1XD 01/18/23 01/18/23 furosemide 20 tab 1XD PRN Weight Gain 01/18/23 01/18/23 metoprolol succinate 50 tab 3XD 01/18/23 01/18/23 rosuvastatin 2.5 tab 1XD 01/18/23 01/18/23 spironolactone 25 mg tablet 25 mg PO DAILY 01/18/23 01/18/23 Previous Rx's Medication Instructions Recorded sildenafil (pulm.hypertension) 20 20 mg PO ONCE #100 tabs 02/18/18 mg tablet vardenafil 20 mg tablet (Levitra) See Rx Instructions PO .prn PRN 03/17/20 sexual activity #90 tabs gabapentin 600 mg tablet See Rx Instructions .Route 01/01/22 .COMPLEX #270 tabs colchicine (gout) 0.6 mg tablet 0.6 mg PO DAILY #14 tabs 06/27/22 empagliflozin 25 mg tablet 25 mg PO QAM #90 tabs 09/24/22 (Jardiance) losartan 25 mg tablet 25 mg PO DAILY #90 tabs 09/24/22 lovastatin 20 mg tablet See Rx Instructions .Route 09/24/22 .COMPLEX #90 tabs metformin 500 mg tablet 500 mg PO BID #180 tabs 09/24/22 semaglutide 14 mg tablet (Rybelsus) 14 mg PO DAILY #90 tabs 09/24/22 pioglitazone 15 mg tablet (Actos) 15 mg PO DAILY diabetes #90 tabs 12/27/22 propranolol 10 mg tablet 10 mg PO BID PRN tremor #60 tabs 12/27/22 doxycycline hyclate 100 mg capsule 100 mg PO BID 7 days #14 caps 01/18/23 Allergies Allergy/AdvReac Type Severity Reaction Status Date / Time Penicillins AdvReac Mild GI Verified 01/03/23 15:03 Review of Systems Constitutional Constitutional: Reports system reviewed and no additional complaints, except as documented Respiratory Respiratory: Reports system reviewed and no additional complaints, except as documented Gastrointestinal Gastrointestinal: Reports system reviewed and no additional complaints, except as documented Genitourinary Genitourinary: Reports system reviewed and no additional complaints, except as documented Integumentary/Breasts Skin/Breast: Reports system reviewed and no additional complaints, except as documented Neurologic Neurologic: Reports system reviewed and no additional complaints, except as documented Patient History Medical History Beta thalassemia trait (05/23/14) Body posture problem Cervical somatic dysfunction Chronic diarrhea Chronic kidney disease, stage 3 Chronic right-sided thoracic back pain Cranial somatic dysfunction Diarrhea Excessive cerumen in both ear canals Excessive daytime sleepiness Hypertriglyceridemia without hypercholesterolemia Incontinence of feces with fecal urgency Lumbar region somatic dysfunction Obstructive sleep apnea syndrome (02/23/15) Pelvic somatic dysfunction Sacral region somatic dysfunction Segmental and somatic dysfunction of abdomen and other regions Suspicious nevus Thoracic region somatic dysfunction Type 2 diabetes mellitus with peripheral neuropathy Vitamin D deficiency Surgical History History of appendectomy History of cholecystectomy S/P left rotator cuff repair Social History household members: spouse Smoking Status: Former smoker alcohol intake: current substance use type: does not use Smoking Status: Former smoker alcohol intake frequency: a few times a month Substance Use Type: does not use Exam Initial Vital Signs Initial Vital Signs: Vital Signs Temperature 98.1 F 01/18/23 09:14 Pulse Rate 69 01/18/23 09:14 Respiratory Rate 18 01/18/23 09:14 Blood Pressure 163/70 H 01/18/23 09:14 Pulse Oximetry 96 01/18/23 09:14 Oxygen Delivery Method Room Air 01/18/23 09:14 HENMT Head: normal to inspection and normocephalic Resp Effort & Inspection: normal respiratory effort, no respiratory distress and not tachypneic Auscultation: rhonchi and wheezes Cardio Rate: regular rate Rhythm: regular rhythm GI Inspection: normal to inspection Skin General: no rashes or lesions noted Neuro General: patient alert, patient awake and moves all extremities Extrem General: No edema Course Orders Ordered: ED Orders 01/18/23 09:00 Respiratory Panel (Film Array) Stat 01/18/23 09:12 CXR [XR chest 2V] Stat 01/18/23 09:16 EKG-12 Lead Stat Albuterol (Albuterol 2.5 Mg/3 Ml Neb (Adult)) 2.5 mg INH [id number] PRN PRN Reason: Shortness Of Breath Last Admin: 01/18/23 09:30 Dose: 2.5 mg Documented By: SAT Vital Signs Vital signs: Vital Signs - 8 hr 01/18/23 09:14 01/18/23 09:40 Temperature 98.1 F Pulse Rate 69 66 Respiratory Rate 18 18 Blood Pressure 163/70 H Pulse Oximetry 96 97 Oxygen Delivery Method Room Air Room Air Oxygen Flow Rate 0 Fraction of Inspired Oxygen 21 Medical Decision Making Lab Data Lab results reviewed: Yes I reviewed the patient's lab results. Labs: Lab Results 01/18/23 Range/Units 09:00 Chlamy pneumoniae PCR Not detected (Not Detect) Adenovirus (PCR) Not detected (Not Detect) B. pertussis DNA (PCR) Not detected (Not Detecte) B.parapertussis DNA PCR Not detected (Not Detecte) Coronavirus OC43 (PCR) Not detected (Not Detect) Coronavirus HKU1 (PCR) Not detected (Not Detect) Coronavirus 229E (PCR) Not detected (Not Detect) SARS-CoV-2 (PCR) Not detected (Not Detecte) Coronavirus NL63 (PCR) Not detected (Not Detect) Human Metapneumovir PCR Not detected (Not Detect) Influenza Type A (PCR) Not detected (Not Detect) Influenza Type B (PCR) Not detected (Not Detect) M. pneumoniae (PCR) Not detected (Not Detect) Parainfluenza 1 (PCR) Not detected (Not Detect) Parainfluenza 2 (PCR) Not detected (Not Detect) Parainfluenza 3 (PCR) Not detected (Not Detect) Parainfluenza 4 (PCR) Not detected (Not Detect) RSV (PCR) Not detected (Not Detect) Entero/Rhino (PCR) Not detected (Not Detect) Imaging Data Chest x-ray: Radiologist's Impression: PROCEDURE:? XR CHEST 2V ? INDICATIONS:? cough ? TECHNIQUE:? 2 views of the chest were acquired.? ? COMPARISON:? [facility], CR, XR CHEST 2V, 02/04/2019, 13:08.? [facility], CR, XR CHEST 2V, 01/03/2023, 15:39. ? FINDINGS:? ? Surgical changes and devices:? None.? ? Lungs and pleura:? No infiltrate or consolidation.? There is a calcified granuloma in the right lower lobe.? No pleural effusions or pneumothorax.? ? Mediastinum:? Mediastinal contours are normal.? Heart size is normal.? ? Bones and chest wall:? No suspicious bony abnormalities.? Soft tissues appear unremarkable.? ? ? IMPRESSION:? No acute cardiopulmonary abnormality is seen.? A calcified granuloma in the right lower lobe.? ECG Data Attestation: I personally reviewed and interpreted this ECG as follows: Interpretation: Sinus rhythm Ventricular rate is 71 Normal axis Normal QRS Normal QTC No ST T wave changes MDM Narrative Medical decision making narrative: Chest x-ray shows no signs of pneumonia. His respiratory panel was negative. He is afebrile but does have coarse breath sounds to include wheezing and also a productive cough and his symptoms have been going on for the past 4-5 weeks. There was no overt pneumonia on the chest x-ray however given his presentation atypical pneumonia is certainly a possibility. Plan will be is to treat him with antibiotics for an atypical pneumonia. He was instructed that he needed to contact his primary doctor because of he does not improve with the antibiotics he may need more further pulmonary testing. He expressed understanding and agreement. Discharge Plan Departure Patient Disposition: Home Clinical Impression: Atypical pneumonia Instructions: DI for Atypical Pneumonia Activity Restrictions/Additional Instructions: Continue to take all of your medications as directed. Take the antibiotics as directed as well. Contact your primary doctor for a follow-up. Return to the emergency department for new or worsening symptoms. Prescriptions: New doxycycline hyclate 100 mg capsule 100 mg PO BID 7 Days Qty: 14 0RF No Action aspirin 81 MG tablet,delayed release (DR/EC) 81 mg PO DAILY Qty: 0 gabapentin 600 mg tablet See Rx Instructions .ROUTE .COMPLEX Qty: 270 0RF Dose Instruction: TAKE ONE TABLET BY MOUTH THREE TIMES DAILY Rx Instructions: TAKE ONE TABLET BY MOUTH THREE TIMES DAILY sildenafil (pulm.hypertension) 20 mg tablet 20 mg PO ONCE Qty: 100 5RF Rx Instructions: 1-5 tabs as directed vardenafil [Levitra] 20 mg tablet See Rx Instructions PO .prn PRN (Reason: sexual activity) Qty: 90 3RF Rx Instructions: 1/2-1 tab as needed PO .prn PRN; colchicine (gout) 0.6 mg tablet 0.6 mg PO DAILY Qty: 14 1RF metformin 500 mg tablet 500 mg PO BID Qty: 180 3RF Jardiance 25 mg tablet 25 mg PO QAM Qty: 90 3RF lovastatin 20 mg tablet See Rx Instructions .ROUTE .COMPLEX Qty: 90 3RF Dose Instruction: TAKE ONE TABLET BY MOUTH ONE TIME DAILY Rx Instructions: TAKE ONE TABLET BY MOUTH ONE TIME DAILY losartan 25 mg tablet 25 mg PO DAILY Qty: 90 3RF Rybelsus 14 mg tablet 14 mg PO DAILY Qty: 90 3RF propranolol 10 mg tablet 10 mg PO BID PRN (Reason: tremor) Qty: 60 5RF pioglitazone [Actos] 15 mg tablet 15 mg PO DAILY Qty: 90 3RF berberine-herbal comb no.18 Capsule 2 cap PO DAILY Carditone 2 cap PO DAILY spironolactone 25 mg Tablet 25 mg PO DAILY metoprolol succinate 50 tab 3XD Xarelto 20 tab 1XD rosuvastatin 2.5 tab 1XD furosemide 20 tab 1XD MDD 20 PRN (Reason: Weight Gain) latanoprost 0.005 % drops 1 drp ophthalmic (eye) DIRECTED (DME) Dreamstation BIPAP Qty: 1 Dose Instruction: As directed Patient Comments: Pressure: IPAP 16 EPAP 12 PS 4/4 DME: [facility] Ordered 02/02/19 Rx Instructions: As directed Referrals: John High DO [Primary Care Provider] - Stand Alone Forms: Patient Portal/API
[2023-01-18 10:17] LABS: Adenovirus Not Detected (Not Detect); B. parapertussis Not Detected (Not Detecte); Bordetella pertussis Not Detected (Not Detecte); Chlamydophila pneumoniae Not Detected (Not Detect); Coronavirus 229E Not Detected (Not Detect); Coronavirus HKU1 Not Detected (Not Detect); Coronavirus NL 63 Not Detected (Not Detect); Coronavirus OC43 Not Detected (Not Detect); Human Metapneumovirus Not Detected (Not Detect); Human Rhinovirus/Enterovirus Not Detected (Not Detect); Influenza A Not Detected (Not Detect); Influenza B Not Detected (Not Detect); Mycoplasma pneumoniae Not Detected (Not Detect); Parainfluenza Virus 1 Not Detected (Not Detect); Parainfluenza Virus 2 Not Detected (Not Detect); Parainfluenza Virus 3 Not Detected (Not Detect); Parainfluenza Virus 4 Not Detected (Not Detect); Respiratory Syncytial Virus Not Detected (Not Detect); SARS- CoV-2 Not Detected (Not Detecte)
--- NOTE | 2023-01-18 11:00 | PC.NURSE ---
Spacer training completed.
--- NOTE | 2023-01-18 11:37 | PC.NURSE ---
Patient reports significant improvement after nebulizer.
== END 2023-01-18 11:00 | disposition home or self-care (01) ==
PROVIDERS: Emergency Provider Emergency Medicine; PCP Family Medicine
DX: J18.9 Pneumonia, unspecified organism (principal); Z79.01 Long term (current) use of anticoagulants; Z79.899 Other long term (current) drug therapy
CPT/HCPCS: 71046; 87633; 93005; 93010; 94640; 99283; 99284; J7613

== ENCOUNTER → 2023-02-20 16:04 | Outpatient (CLI) | payer MEDICARE, OTHER, SELFPAY ==
[2023-02-20 16:53] LABS: Blood Urea Nitrogen 25 mg/dL (9-20); Carbon Dioxide 24 mmol/L (22-32); Chloride 102 mmol/L (98-107); Estimated Glomerular Filt Rate 58 mL/min (>60); Glucose 138 mg/dL (80-110); Sodium 137 mmol/L (137-145)
[2023-02-20 16:55] LABS: Calcium 9.4 mg/dL (8.4-10.2); Potassium 4.5 mmol/L (3.4-5.1)
[2023-02-20 17:00] LABS: HEMOLYSIS 56 (0-50)
== END ==
PROVIDERS: PCP Family Medicine; Referring Provider Urology; Visit Provider Urology
DX: R31.0 Gross hematuria (principal)
CPT/HCPCS: 36415; 80048

== ENCOUNTER → 2023-02-25 11:14 | Outpatient (CLI) | payer MEDICARE, OTHER, SELFPAY ==
--- NOTE | 2023-02-25 | DI.CT.S_ITS ---
PROCEDURE: CT IVP A/P W/WO INDICATIONS: Gross hematuria TECHNIQUE: 5 mm thick noncontrast images acquired from the diaphragm to the symphysis pubis. After the administration of intravenous contrast, 5 mm thick images acquired from the diaphragm to the symphysis pubis after a 10-minute delay. 2 mm thick coronal and sagittal reformats were then performed of the kidneys and ureters. For radiation dose reduction, the following was used: automated exposure control, adjustment of mA and/or kV according to patient size. COMPARISON: None. FINDINGS: Lung bases: No pleural effusion. Irregular 8 mm left lower lobe pulmonary nodule (7/7). Urinary system: No renal, ureteral, or bladder stone visualized. No hydroureteronephrosis. Small cortical cyst right mid kidney. 1.7 cm partially exophytic structure left mid kidney is intermediate density, 40 Hounsfield units on precontrast images without definite enhancement by Bosniak 2019 criteria, 50 Hounsfield units on postcontrast images, suggestive of a Bosniak category 2 cyst. The opacified portions of the renal collecting systems and ureters are unremarkable without a definite filling defect demonstrated. Most of the left ureter and the proximal right ureter are not well opacified/evaluated. Prostatomegaly. Other solid organs: Liver is normal in size and enhancement. Gallbladder is not visualized presumed surgically absent. Biliary system is non dilated. Pancreas enhances normally. Spleen is normal in size. No adrenal nodules. Peritoneum and bowel: Possible small hiatal hernia. No bowel obstruction. No free air or substantial free fluid. Nodes and vessels: No retroperitoneal or mesenteric adenopathy by size criteria. Aorta and inferior vena cava are normal in size. Pelvis: No pathologic free pelvic fluid. No adenopathy. Fat containing right inguinal hernia. Bones: Multilevel degenerative change of the visualized spine. IMPRESSION: 1. No urinary stone or definite evidence of a solid renal mass or upper tract urothelial neoplasm. 2. An 8 mm left lower lobe pulmonary nodule is present. Follow-up chest CT recommended in 6-12 months, or sooner at clinical discretion. Dictated by: Ulices Zamorano M.D. on 02/26/2023 at 11:24 Approved by: Ulices Zamorano M.D. on 02/26/2023 at 12:22
== END ==
PROVIDERS: PCP Family Medicine; Referring Provider Urology; Visit Provider Urology
DX: N28.1 Cyst of kidney, acquired (principal); N40.0 Benign prostatic hyperplasia without lower urinary tract symptoms; R31.0 Gross hematuria; R91.1 Solitary pulmonary nodule; K40.90 Unilateral inguinal hernia, without obstruction or gangrene, not specified as recurrent
CPT/HCPCS: 74178

== ENCOUNTER → 2023-03-25 07:45 | Outpatient (CLI) | payer MEDICARE, OTHER, SELFPAY ==
[2023-03-25 09:28] LABS: Hemoglobin A1C% w Est Avg Glu 8.6 % (4.0-6.0)
== END ==
PROVIDERS: PCP Family Medicine; Referring Provider Family Medicine; Visit Provider Family Medicine
DX: E11.42 Type 2 diabetes mellitus with diabetic polyneuropathy (principal)
CPT/HCPCS: 36415; 83036

== ENCOUNTER → 2023-07-14 07:30 | Outpatient (CLI) | payer MEDICARE, OTHER, SELFPAY ==
[2023-07-14 09:17] LABS: Prostate Specific Antigen Scrn 1.03 ng/mL (0.1-4.0)
== END ==
PROVIDERS: PCP Family Medicine; Referring Provider Family Medicine; Visit Provider Family Medicine
DX: Z12.5 Encounter for screening for malignant neoplasm of prostate (principal); R39.9 Unspecified symptoms and signs involving the genitourinary system; R31.0 Gross hematuria; E78.1 Pure hyperglyceridemia; E11.42 Type 2 diabetes mellitus with diabetic polyneuropathy; N18.30 Chronic kidney disease, stage 3 unspecified
CPT/HCPCS: 36415; G0103

== ENCOUNTER → 2023-11-13 07:48 | Outpatient (CLI) | payer MEDICARE, OTHER, SELFPAY ==
[2023-11-13 08:54] LABS: Add Manual Diff / Slide Review NO; Basophils Absolute Auto 0 /uL (0-100); Basophils Percent Auto 0.6 % (0-2); Eosinophils Absolute Auto 200 /uL (0-450); Eosinophils Percent Auto 3.9 % (2-4); Hematocrit 39.7 % (41-53); Hemoglobin 12.8 g/dL (13.5-17.5); Lymphocytes Absolute Auto 1400 /uL (1100-4500); Mean Corpuscular HGB Conc 32.2 % (30-36); Mean Corpuscular Hemoglobin 21.6 PG (26-34); Mean Corpuscular Volume 67.2 fL (80-100); Monocytes Absolute Auto 500 /uL (0-900); Neutrophils Absolute Auto 4100 /uL (1500-7000); Neutrophils Percent Auto 65.5 % (50-75); Platelet Count 251 X10^3/uL (150-400); Red Blood Cell Count 5.91 X10^6/uL (4.5-5.9); Red Cell Distribution Width 16.5 % (11.6-14.8); White Blood Cell Count 6.3 X10^3/uL (4.5-11.0)
[2023-11-13 09:19] LABS: Alanine Aminotransferase 27 IU/L (<50); Albumin 4.3 g/dL (3.5-5.0); Albumin Globulin Ratio 1.7 (1.0-2.8); Alkaline Phosphatase 49 U/L (38-126); Aspartate Aminotransferase 23 IU/L (17-59); BUN Creatinine Ratio 18.8 (6-22); Bilirubin Total 0.7 mg/dL (0.2-1.3); Blood Urea Nitrogen 29 mg/dL (9-20); Carbon Dioxide 24 mmol/L (22-32); Chloride 107 mmol/L (98-107); Cholesterol 145 mg/dL (140-199); Estimated Glomerular Filt Rate 45 mL/min (>60); Globulin 2.6 g/dL (1.7-4.1); Glucose 174 mg/dL (80-110); HDL Cholesterol 36 mg/dL (40-60); HEMOLYSIS < 15 (0-50); LDL Cholesterol Calculated 59 mg/dL (<100); Potassium 4.7 mmol/L (3.4-5.1); Sodium 139 mmol/L (137-145); Total Protein 6.9 g/dL (6.3-8.2); Triglycerides 251 mg/dL (35-150)
[2023-11-13 11:49] LABS: Anisocytosis 1+
[2023-11-13 12:46] LABS: Hemoglobin A1C% w Est Avg Glu 7.7 % (4.0-6.0)
== END ==
LOC: LAB 07:50
PROVIDERS: PCP Family Medicine; Referring Provider Family Medicine; Visit Provider Family Medicine
DX: E78.1 Pure hyperglyceridemia (principal); E11.42 Type 2 diabetes mellitus with diabetic polyneuropathy; E11.22 Type 2 diabetes mellitus with diabetic chronic kidney disease; N18.30 Chronic kidney disease, stage 3 unspecified
CPT/HCPCS: 36415; 80053; 80061; 83036; 85025

== ENCOUNTER → 2024-02-18 08:03 | Outpatient (CLI) | payer MEDICARE, OTHER, SELFPAY ==
[2024-02-18 09:21] LABS: Alanine Aminotransferase 31 IU/L (<50); Albumin 4.4 g/dL (3.5-5.0); Albumin Globulin Ratio 1.9 (1.0-2.8); Alkaline Phosphatase 47 U/L (38-126); Aspartate Aminotransferase 22 IU/L (17-59); BUN Creatinine Ratio 22.7 (6-22); Bilirubin Total 0.6 mg/dL (0.2-1.3); Blood Urea Nitrogen 34 mg/dL (9-20); Calcium 10.5 mg/dL (8.4-10.2); Carbon Dioxide 20 mmol/L (22-32); Chloride 106 mmol/L (98-107); Estimated Glomerular Filt Rate 46 mL/min (>60); Globulin 2.3 g/dL (1.7-4.1); Glucose 163 mg/dL (80-110); HEMOLYSIS < 15 (0-50); Potassium 4.3 mmol/L (3.4-5.1); Sodium 137 mmol/L (137-145); Total Protein 6.7 g/dL (6.3-8.2)
[2024-02-18 10:05] LABS: Hemoglobin A1C% w Est Avg Glu 7.9 % (4.0-6.0)
== END ==
PROVIDERS: PCP Family Medicine; Referring Provider Family Medicine; Visit Provider Family Medicine
DX: E11.42 Type 2 diabetes mellitus with diabetic polyneuropathy (principal); N18.30 Chronic kidney disease, stage 3 unspecified
CPT/HCPCS: 36415; 80053; 83036

== ENCOUNTER → 2024-06-28 07:58 | Outpatient (CLI) | payer MEDICARE, OTHER, SELFPAY ==
[2024-06-28 08:50] LABS: Creatinine Urine Random 117.52 mg/dL
[2024-06-28 08:55] LABS: Microalbumin Urine Random 1.9 mg/dL (0-1.6)
[2024-06-28 09:09] LABS: Add Manual Diff / Slide Review NO; Basophils Absolute Auto 0 /uL (0-100); Basophils Percent Auto 0.8 % (0-2); Eosinophils Absolute Auto 300 /uL (0-450); Eosinophils Percent Auto 5.6 % (2-4); Hematocrit 39.4 % (41-53); Hemoglobin 12.6 g/dL (13.5-17.5); Lymphocytes Absolute Auto 1600 /uL (1100-4500); Lymphocytes Percent Auto 26.4 % (25-40); Mean Corpuscular HGB Conc 31.9 % (30-36); Mean Corpuscular Hemoglobin 21.6 PG (26-34); Mean Corpuscular Volume 67.5 fL (80-100); Monocytes Absolute Auto 400 /uL (0-900); Monocytes Percent Auto 6.9 % (3-14); Neutrophils Absolute Auto 3600 /uL (1500-7000); Neutrophils Percent Auto 60.3 % (50-75); Platelet Count 261 X10^3/uL (150-400); Red Blood Cell Count 5.83 X10^6/uL (4.5-5.9); Red Cell Distribution Width 16.5 % (11.6-14.8); White Blood Cell Count 5.9 X10^3/uL (4.5-11.0)
[2024-06-28 09:17] LABS: Alanine Aminotransferase 27 IU/L (<50); Albumin 4.5 g/dL (3.5-5.0); Albumin Globulin Ratio 1.9 (1.0-2.8); Alkaline Phosphatase 43 U/L (38-126); Aspartate Aminotransferase 24 IU/L (17-59); BUN Creatinine Ratio 17.2 (6-22); Bilirubin Total 0.7 mg/dL (0.2-1.3); Blood Urea Nitrogen 25 mg/dL (9-20); Calcium 9.6 mg/dL (8.4-10.2); Carbon Dioxide 21 mmol/L (22-32); Chloride 105 mmol/L (98-107); Cholesterol 153 mg/dL (140-199); Estimated Glomerular Filt Rate 48 mL/min (>60); Globulin 2.4 g/dL (1.7-4.1); Glucose 150 mg/dL (80-110); HDL Cholesterol 38 mg/dL (40-60); HEMOLYSIS < 15 (0-50); LDL Cholesterol Calculated 64 mg/dL (<100); Potassium 4.2 mmol/L (3.4-5.1); Sodium 138 mmol/L (137-145); Total Protein 6.9 g/dL (6.3-8.2); Triglycerides 256 mg/dL (35-150)
[2024-06-28 09:22] LABS: Hemoglobin A1C% w Est Avg Glu 6.7 % (4.0-6.0)
[2024-06-28 12:32] LABS: Anisocytosis 1+; Microcytosis 1+; Ovalocytes 1+
== END ==
PROVIDERS: PCP Family Medicine; Referring Provider Family Medicine; Visit Provider Family Medicine
DX: E11.42 Type 2 diabetes mellitus with diabetic polyneuropathy (principal)
CPT/HCPCS: 36415; 80053; 80061; 82043; 82570; 83036; 85025

== ENCOUNTER → 2024-12-02 07:49 | Outpatient (CLI) | payer MEDICARE, OTHER, SELFPAY | PROVIDERS: PCP Family Medicine; Referring Provider Urology; Visit Provider Urology | DX: Z12.5 Encounter for screening for malignant neoplasm of prostate (principal) | CPT/HCPCS: 36415; G0103 ==

== ENCOUNTER → 2024-12-10 08:43 | Outpatient (CLI) | payer MEDICARE, OTHER, SELFPAY ==
[2024-12-10 08:56] LABS: Add Manual Diff / Slide Review NO; Hematocrit 38.4 % (41-53); Hemoglobin 12.5 g/dL (13.5-17.5); Lymphocytes Absolute Auto 1600 /uL (1100-4500); Mean Corpuscular HGB Conc 32.5 % (30-36); Mean Corpuscular Hemoglobin 21.9 PG (26-34); Mean Corpuscular Volume 67.4 fL (80-100); Platelet Count 250 X10^3/uL (150-400)
[2024-12-10 09:04] LABS: Hemoglobin A1C% w Est Avg Glu 7.9 % (4.0-6.0)
[2024-12-10 09:17] LABS: Alanine Aminotransferase 30 IU/L (<50); Albumin 4.5 g/dL (3.5-5.0); Albumin Globulin Ratio 1.8 (1.0-2.8); Alkaline Phosphatase 56 U/L (38-126); Blood Urea Nitrogen 23 mg/dL (9-20); Calcium 9.6 mg/dL (8.4-10.2); Carbon Dioxide 23 mmol/L (22-32); Chloride 102 mmol/L (98-107); Cholesterol 117 mg/dL (140-199); Estimated Glomerular Filt Rate 42 mL/min (>60); Globulin 2.5 g/dL (1.7-4.1); Glucose 218 mg/dL (70-99); HDL Cholesterol 32 mg/dL (40-60); HEMOLYSIS < 15 (0-50); Potassium 4.6 mmol/L (3.4-5.1); Sodium 137 mmol/L (137-145); Total Protein 7.0 g/dL (6.3-8.2); Triglycerides 328 mg/dL (35-150)
[2024-12-10 10:14] LABS: Ovalocytes 1+; Poikilocytosis 1+
[2024-12-10 10:17] LABS: Anisocytosis 1+; Microcytosis 1+
== END ==
PROVIDERS: PCP Family Medicine; Referring Provider Family Medicine; Visit Provider Family Medicine
DX: D56.3 Thalassemia minor (principal); N18.30 Chronic kidney disease, stage 3 unspecified; E11.42 Type 2 diabetes mellitus with diabetic polyneuropathy
CPT/HCPCS: 36415; 80053; 80061; 83036; 85025

== ENCOUNTER → 2025-01-20 08:01 | Outpatient (CLI) | payer MEDICARE, OTHER, SELFPAY ==
[2025-01-20 10:11] LABS: Microalbumi Creatinin Ratio Ur 18.0 ug/mg CR (<30)
== END ==
PROVIDERS: PCP Family Medicine; Referring Provider Family Medicine; Visit Provider Family Medicine
DX: E11.9 Type 2 diabetes mellitus without complications (principal)
CPT/HCPCS: 82043; 82570

== ENCOUNTER → 2025-04-26 09:50 | Outpatient (CLI) | payer MEDICARE, OTHER, SELFPAY ==
--- NOTE | 2025-04-26 10:46 | DIAB.MNT ---
Initial Diabetes Medical Nutrition Therapy Assessment Name: Lm Donovan (Al) Date: 04/26/25 Time: 100a Dx: Type II Diabetes Provider: Lennox Roe Learning Style: Hands-on Al presents for initial DM visit. Endorses PMH of Dm x 25 years. Started Ozempic recently, 5# wt loss over the last month, improved BG, and reduced appetite reported. Has reduced sugar intake, cut out chips and other snacks. Finds it difficult to add veggies. 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 Diet Recall: 730a: coffee, banana, toast 1030a: coffee 1130a: slice of ham and cheese 1230p: 1c white rice, butter, salt 1p: half pb sandwich 2p: coffee 4p: banana 530p: ham and cheese 6p: coffee, 4 oreos, water water 20oz x 3-5 other snacks: celery and pb occasionally Anthropometrics: Ht: 6'2 Wt: 235# reported Physical Activity: Biking outdoor with group 2-3 days per week 15 miles. Less often when weather is poor. has indoor stationary bike, uses infrequently when feeling frustrated with art. Not consistent. Barrier to exercise includes neuropathy in feet. Self-Monitoring Blood Glucose: Checking FBG 1x per week, which has improved over the last month. Date Pre Post Pre Post Pre Post HS 03/09 146 03/16 156 03/23 147 03/30 167 04/06 166 04/13 133 04/20 132 Diabetes Medications: 25mg Jardiance 1000mg Metformin BID 2mg Ozempic weekly Pertinent Labs: HgA1c: 7.9% 12/2024 Past Medical History: (Last Reviewed 12/08/24 @ 08:05 by Augustine Valle DO) Benign prostatic hyperplasia with lower urinary tract symptoms Beta thalassemia trait (05/23/14) Body posture problem Cervical somatic dysfunction Chronic diarrhea Chronic kidney disease, stage 3 Chronic right-sided thoracic back pain Cranial somatic dysfunction Diarrhea Erectile dysfunction Excessive cerumen in both ear canals Excessive daytime sleepiness Gross hematuria History of gross hematuria History of tobacco use Hypertriglyceridemia without hypercholesterolemia Incontinence of feces with fecal urgency Lower urinary tract symptoms Lumbar region somatic dysfunction Nocturia Numbness of toes Obstructive sleep apnea syndrome (02/23/15) Pelvic somatic dysfunction Sacral region somatic dysfunction Secondhand smoke exposure Segmental and somatic dysfunction of abdomen and other regions Suspicious nevus Thoracic region somatic dysfunction Type 2 diabetes mellitus with peripheral neuropathy Vitamin D deficiency Nutrition Rx: Carbohydrates: Meal:45g Snack:15-30g Nutrition Diagnosis: - Nutrition and food related knowledge deficit r/t limited MNT/DM education aeb pt report - Predicted inadequate fiber intake r/t limited whole grains and veggies aeb diet recall Intervention: This participant was very receptive. Provided appropriate educational handouts. Discussed the following topics: Completed intake assessment. Discussed barriers to care. HgA1c, its correlation to blood glucose numbers, and rationale for goal Self-monitoring, how often, and when to check. Suggested checking at different times. Plate Method, impact of macronutrients on blood sugar, meal timing, carbohydrate counting, pairing macronutrients and spreading out carbohydrates for better blood glucose management Recommended servings for carbohydrates at meals and snacks Heart health nutrition Brainstormed appropriate meal/snack ideas based on food preferences Role of physical activity and following provider guidelines for safety Strategies for adding veggies Created SMART goals for patient self-care and success. Goals: Pair CHO and protein Add protein to breakfast Add veggies 1x per day Check BG 2x per week or more: FBG and HS Follow-up: NEGRITA JIMENEZ follow-up in 3-4 weeks Diane Perez RDN, [facility] Cert[facility] [employer] P: [phone] Thank you for this referral
== END ==
LOC: DIET 09:51
PROVIDERS: PCP Family Medicine; Referring Provider Family Medicine
DX: E11.9 Type 2 diabetes mellitus without complications (principal); Z71.3 Dietary counseling and surveillance; Z79.84 Long term (current) use of oral hypoglycemic drugs; Z79.85 Long-term (current) use of injectable non-insulin antidiabetic drugs
CPT/HCPCS: 97802